=== PATIENT | female | born 1960 | race Native Hawaiian/Other Pacific Islander ===

== ENCOUNTER 2016-09-15 19:08 | Emergency (ER) | payer OTHER ==
[~2016-09-15] VITALS: Ht 167.6 cm; Wt 59.0 kg
[~2016-09-15 19:08] MED LIST: BACLOFEN20 MG OR; CITALOPRAM40 MG PO; GRALISE600 MG OR; LORAZEPAM0.5 MG OR; LORTAB 10-325 M1 TAB PO; TRAZODONE300 MG PO
[2016-09-15 20:09] VITALS: BP 154/82; TEMP 98.3
== END 2016-09-15 20:15 | disposition home or self-care (01) ==
LOC: ED 19:08
DX: H60.593 Other noninfective acute otitis externa, bilateral (principal); H92.03 Otalgia, bilateral; T70.0XXA Otitic barotrauma, initial encounter
CPT/HCPCS: 99282; J0696

== ENCOUNTER 2017-04-07 11:23 | Outpatient (CLI) | payer OTHER ==
[2017-04-07 12:00] LABS: PLATELET COUNT 309 K/uL (152-353)
[2017-04-07 12:48] LABS: POTASSIUM 3.2 mmol/L (3.6-5.2); SODIUM 136 mmol/L (136-145)
== END 2017-04-07 12:25 | disposition home or self-care (01) ==
LOC: LABW 11:23
PROVIDERS: Nurse Practitioner
DX: I10 Essential (primary) hypertension (principal); R60.0 Localized edema; G89.21 Chronic pain due to trauma; R42 Dizziness and giddiness; Z79.899 Other long term (current) drug therapy; Z51.81 Encounter for therapeutic drug level monitoring
CPT/HCPCS: 36415; 80053; 80061; 81000; 82043; 82570; 85027; 85651; 86039

== ENCOUNTER 2018-06-30 11:40 | Outpatient (CLI) | payer OTHER ==
[2018-06-30 12:11] LABS: PLATELET COUNT 276 K/uL (152-353)
[2018-06-30 12:36] LABS: POTASSIUM 3.7 mmol/L (3.6-5.2)
== END 2018-06-30 23:04 | disposition home or self-care (01) ==
LOC: LABW 11:40
DX: I10 Essential (primary) hypertension (principal); E78.2 Mixed hyperlipidemia; R60.0 Localized edema
CPT/HCPCS: 36415; 80053; 80061; 82306; 83735; 84443; 85027; 85651

== ENCOUNTER 2019-01-26 09:31 | Outpatient (CLI) | payer OTHER ==
[2019-01-26 10:09] LABS: PLATELET COUNT 339 K/uL (152-353)
== END 2019-01-26 19:56 | disposition home or self-care (01) ==
LOC: LABW 09:31
PROVIDERS: Nurse Practitioner
DX: M79.18 Myalgia, other site (principal); R20.2 Paresthesia of skin; I10 Essential (primary) hypertension; E78.2 Mixed hyperlipidemia
CPT/HCPCS: 36415; 80053; 80061; 85027; 85651

== ENCOUNTER 2019-05-16 10:04 | Outpatient (CLI) | payer OTHER ==
[2019-05-16 10:32] LABS: PLATELET COUNT 416 K/uL (152-353)
[2019-05-16 10:47] LABS: POTASSIUM 2.9 mmol/L (3.6-5.2)
== END 2019-05-16 23:07 | disposition home or self-care (01) ==
LOC: LABW 10:04
PROVIDERS: Nurse Practitioner
DX: E87.6 Hypokalemia (principal); I10 Essential (primary) hypertension; E61.2 Magnesium deficiency
CPT/HCPCS: 36415; 80053; 82150; 83735; 85027; 85651

== ENCOUNTER 2019-06-13 13:09 | Outpatient (CLI) | payer OTHER ==
[2019-06-13 13:54] LABS: POTASSIUM 3.4 mmol/L (3.6-5.2)
== END 2019-06-13 19:35 | disposition home or self-care (01) ==
LOC: LABW 13:09
PROVIDERS: Nurse Practitioner
DX: E87.6 Hypokalemia (principal); E61.2 Magnesium deficiency
CPT/HCPCS: 36415; 80053; 83735

== ENCOUNTER 2019-06-15 11:50 | Outpatient (CLI) | payer OTHER ==
[2019-06-15 12:19] LABS: PLATELET COUNT 353 K/uL (152-353)
== END 2019-06-15 20:49 | disposition home or self-care (01) ==
LOC: LABW 11:50
PROVIDERS: Internal Medicine Hematology & Oncology
DX: C85.10 Unspecified B-cell lymphoma, unspecified site (principal)
CPT/HCPCS: 36415; 80053; 82784; 83615; 85027

== ENCOUNTER 2019-12-01 12:10 | Outpatient (CLI) | payer OTHER ==
[2019-12-01 13:02] LABS: PLATELET COUNT 272 K/uL (152-353)
[2019-12-01 13:07] LABS: POTASSIUM 3.4 mmol/L (3.6-5.2)
== END 2019-12-01 20:47 | disposition home or self-care (01) ==
LOC: LABW 12:10
PROVIDERS: Internal Medicine Hematology & Oncology
DX: C85.10 Unspecified B-cell lymphoma, unspecified site (principal)
CPT/HCPCS: 36415; 80053; 83615; 85027

== ENCOUNTER 2020-01-31 11:29 | Outpatient (CLI) | payer OTHER | END 2020-01-31 23:54 | disposition home or self-care (01) | LOC: RAD 11:29 | DX: M25.521 Pain in right elbow (principal); M25.532 Pain in left wrist; S59.901A Unspecified injury of right elbow, initial encounter; S69.92XA Unspecified injury of left wrist, hand and finger(s), initial encounter ==

== ENCOUNTER 2020-06-27 13:44 | Outpatient (CLI) | payer OTHER | END 2020-06-27 21:53 | disposition home or self-care (01) | LOC: LABW 13:44 | PROVIDERS: ATTEND Nurse Practitioner | DX: C85.10 Unspecified B-cell lymphoma, unspecified site (principal); I10 Essential (primary) hypertension; E87.6 Hypokalemia; F33.0 Major depressive disorder, recurrent, mild; C85.90 Non-Hodgkin lymphoma, unspecified, unspecified site; E55.9 Vitamin D deficiency, unspecified | CPT/HCPCS: 36415; 85652 ==

== ENCOUNTER 2020-07-04 14:50 | Outpatient (CLI) | payer OTHER ==
[2020-07-04 15:28] LABS: PLATELET COUNT 279 K/uL (152-353)
[2020-07-04 15:42] LABS: POTASSIUM 3.1 mmol/L (3.6-5.2)
== END 2020-07-04 21:59 | disposition home or self-care (01) ==
LOC: LABW 14:50
PROVIDERS: ATTEND Internal Medicine Hematology & Oncology
DX: I10 Essential (primary) hypertension (principal); E87.6 Hypokalemia; F33.0 Major depressive disorder, recurrent, mild; C85.90 Non-Hodgkin lymphoma, unspecified, unspecified site; E55.9 Vitamin D deficiency, unspecified
CPT/HCPCS: 36415; 80053; 80061; 81000; 82306; 83615; 83735; 85027